=== PATIENT | male | born 1940 | race Caucasian/White ===

== ENCOUNTER 2025-03-31 20:07 | Inpatient (IN) | payer MEDICARE ==
[~2025-03-31] VITALS: Ht 185.4 cm; Wt 91.4 kg
[~2025-03-31 20:07] MED LIST: ALLO100T PO; ASPI81CH49 PO; BRIM0.2S OU; DORZ2SOL5 OU; FURO20TA2 PO; LATA0.0013 OU; LISI10TA22 PO; MELO15TA28 PO; MULT1TAB8 PO; NATU400T PO; OMEG100011 PO; OMEP40CA4 PO; PERC5TAB12 PO; SIMV40TA20 PO; TERA10CA3 PO; [UNRECOGNIZED DRUG - CODE] PO
[2025-03-31] MEDS ORDERED: fentaNYL 100 MCG/2 ML INJECTION IV ONE (20:45)
[2025-03-31] MEDS: ONDANSETRON 4MG 2ML VIAL IV ONE (22:00)
[2025-03-31] MEDS: fentaNYL 100 MCG/2 ML INJECTION IV ONE (22:01)
[2025-03-31] MEDS: ACETAMINOPHEN *IV* 1,000 MG in IV 1 EA IV ONE (22:07)
[2025-03-31 22:14] LABS: HEMATOCRIT 39.5 % (42.0-52.0); HEMOGLOBIN 13.3 g/dl (13.5-17.5); MEAN CORPUSCULAR HGB CONC 33.7 g/dl (32.0-36.5); PLATELET COUNT, AUTOMATED 187 10^3/uL (150-450); RED BLOOD COUNT 4.44 10^6/uL (4.30-6.10); WHITE BLOOD COUNT 8.9 10^3/uL (4.0-10.0)
[2025-03-31 22:45] LABS: CALCIUM LEVEL 9.1 MG/DL (8.3-10.6); CREATININE FOR GFR 1.07 MG/DL (0.70-1.30); GLOMERULAR FILTRATION RATE 69.3 (>35); MAGNESIUM LEVEL 1.7 MG/DL (1.8-2.4); POTASSIUM SERUM 4.3 MMOL/L (3.5-5.1)
[2025-03-31] MEDS ORDERED: ACETAMINOPHEN 325 MG TAB PO PRN (23:50)
[2025-03-31] MEDS ORDERED: MORPHINE 2 MG/ML 1ML VIAL IV PRN (23:50)
[2025-03-31] MEDS ORDERED: ONDANSETRON 4MG 2ML VIAL IV PRN (23:50)
[2025-03-31] MEDS ORDERED: MOM 30ML SUSPENSION UDC PO PRN (23:50)
[2025-03-31] MEDS ORDERED: MAALOX 30 ML SUSP *UDC PO PRN (23:50)
[2025-04-01] VITALS (9 sets, daily range): BP systolic 101–146; BP diastolic 58–79; TEMP 97.2–97.9; O2SAT 92–96
[2025-04-01] MEDS: MAG SULF 1GM/100ML (MAG RUN) 1 GM in IV 1 EA IV ONE (00:17)
[2025-04-01] MEDS: PERCOCET 5MG/325MG TAB PO PRN ×2 (00:23→07:48)
[2025-04-01] MEDS: D5W 1,000 ML IV SCH (01:56)
[2025-04-01 02:01] LABS: INR 1.03; PROTHROMBIN TIME 13.8 SECONDS (12.5-14.5)
[2025-04-01 06:29] LABS: HEMATOCRIT 34.6 % (42.0-52.0); HEMOGLOBIN 11.6 g/dl (13.5-17.5); MEAN CORPUSCULAR HEMOGLOBIN 29.7 pg (27.0-33.0); MEAN CORPUSCULAR HGB CONC 33.5 g/dl (32.0-36.5); MEAN CORPUSCULAR VOLUME 88.7 fl (80.0-96.0); PLATELET COUNT, AUTOMATED 187 10^3/uL (150-450); WHITE BLOOD COUNT 7.5 10^3/uL (4.0-10.0)
[2025-04-01 07:08] LABS: ALBUMIN 3.3 G/DL (3.2-5.2); BILIRUBIN,TOTAL 0.4 MG/DL (0.3-1.2); CALCIUM LEVEL 8.6 MG/DL (8.3-10.6); CREATININE FOR GFR 1.02 MG/DL (0.70-1.30); GLOMERULAR FILTRATION RATE 73.4 (>35); POTASSIUM SERUM 4.1 MMOL/L (3.5-5.1); TOTAL PROTEIN 5.8 G/DL (5.7-8.2)
[2025-04-01] MEDS: DOCUSATE SODIUM 100MG CAPSULE PO SCH (08:00)
[2025-04-01] MEDS: TRANEXAMIC ACID 100 MG/ML 10ML VIAL As Ordered ONE (09:20)
[2025-04-01] MEDS: ceFAZolin SODIUM 2 GM VIAL As Ordered ONE (10:10)
[2025-04-01] MEDS ORDERED: propofoL 200 MG/20 ML VIAL As Ordered ONE (10:26)
[2025-04-01] MEDS ORDERED: SUGAMMADEX SODIUM 500 MG/5 ML VIAL As Ordered ONE (10:26)
[2025-04-01] MEDS ORDERED: ONDANSETRON 4MG 2ML VIAL As Ordered ONE (10:26)
[2025-04-01] MEDS ORDERED: LIDOCAINE 2% 100MG/5ML SDV (FOR ANES.) As Ordered ONE (10:26)
[2025-04-01] MEDS ORDERED: fentaNYL 100 MCG/2 ML INJECTION As Ordered ONE (10:26)
[2025-04-01] MEDS ORDERED: ROCURONIUM BROMIDE 50MG/5ML VIAL As Ordered ONE (10:26)
[2025-04-01] MEDS ORDERED: PHENYLEPHRINE 10MG/ML 1ML VIAL As Ordered ONE (10:32)
[2025-04-01] MEDS ORDERED: ePHEDrine SULFATE 25 MG/5 ML(5MG/ML) SYRINGE As Ordered ONE (10:32)
[2025-04-01] MEDS ORDERED: ACETAMINOPHEN 1000MG/100ML IV BAG As Ordered ONE (10:47)
[2025-04-01] MEDS ORDERED: VANCOMYCIN 1000MG/20ML VIAL As Ordered ONE (11:13)
[2025-04-01] MEDS: BUPivacaine LIPOSOME/PF 266MG 20ML VIAL (13.3MG/ML)(EXPAREL) As Ordered ONE (11:20)
[2025-04-01] MEDS ORDERED: HYDROMORPHONE HCL 0.5 MG/ 0.5 ML SYRINGE IV PRN (11:25)
[2025-04-01] MEDS ORDERED: oxyCODONE 5MG TAB PO PRN (11:25)
[2025-04-01] MEDS ORDERED: METOCLOPRAMIDE INJ 10MG/2ML VIAL IV PRN (11:25)
[2025-04-01] MEDS ORDERED: ONDANSETRON 4MG 2ML VIAL IV PRN (11:25)
[2025-04-01] MEDS ORDERED: fentaNYL 100 MCG/2 ML INJECTION IV PRN (11:25)
[2025-04-01] MEDS ORDERED: KETOROLAC 30 MG/ML 1ML VIAL As Ordered ONE (11:26)
[2025-04-01] MEDS ORDERED: PHENYLephrine 500MCG 5ML (100MCG/ML) SYRINGE As Ordered ONE (11:27)
[2025-04-01] MEDS: ceFAZolin SODIUM 2 GM in DEXTROSE 5% (D5W) ADV/MINI-BAG 50 ML IV SCH (18:20)
[2025-04-01] MEDS: ASPIRIN 81MG ENTERIC TABLET PO SCH (21:50)
[2025-04-01] MEDS ORDERED: MELO7.5T35 PO (22:57)
[2025-04-01] MEDS ORDERED: SIMV20TA22 PO (22:57)
[2025-04-01] MEDS ORDERED: OMEP-173 PO (22:57)
[2025-04-01] MEDS ORDERED: BRIM0.2S13 OU (22:57)
[2025-04-01] MEDS ORDERED: HOME MED LIST COMPLETE! XX SCH (23:00)
[2025-04-02 00:16] VITALS: O2SAT 88
[2025-04-02 00:20] VITALS: O2SAT 91
[2025-04-02 00:21] VITALS: O2SAT 94
[2025-04-02 02:24] VITALS: BP 101/58; TEMP 97.8; O2SAT 95
[2025-04-02 07:13] LABS: HEMATOCRIT 27.5 % (42.0-52.0); INR 1.09; MEAN CORPUSCULAR HEMOGLOBIN 29.7 pg (27.0-33.0); MEAN CORPUSCULAR HGB CONC 32.7 g/dl (32.0-36.5); MEAN CORPUSCULAR VOLUME 90.8 fl (80.0-96.0); PLATELET COUNT, AUTOMATED 161 10^3/uL (150-450); PROTHROMBIN TIME 14.4 SECONDS (12.5-14.5); RED BLOOD COUNT 3.03 10^6/uL (4.30-6.10); WHITE BLOOD COUNT 8.2 10^3/uL (4.0-10.0)
[2025-04-02 07:26] LABS: CALCIUM LEVEL 7.8 MG/DL (8.3-10.6); CREATININE FOR GFR 1.21 MG/DL (0.70-1.30); GLOMERULAR FILTRATION RATE 59.8 (>35); POTASSIUM SERUM 4.4 MMOL/L (3.5-5.1)
[2025-04-02 08:07] VITALS: BP 100/51; TEMP 97.7; O2SAT 91
[2025-04-02] MEDS: METAMUCIL (PSYLLIUM) PACKET PO SCH (09:00)
[2025-04-02] MEDS: MIRALAX *UNIT DOSE* 17GM PACKET PO SCH (09:00)
[2025-04-02] MEDS ORDERED: MIRA33506 PO (10:24)
[2025-04-02] MEDS ORDERED: PERCOCET PO (10:24)
[2025-04-02] MEDS ORDERED: ASPI81CH49 PO (10:24)
[2025-04-02 12:52] VITALS: BP 110/81; TEMP 97.7; O2SAT 94
== END 2025-04-02 14:10 | disposition home or self-care (01) | DRG 981 ==
LOC: M ED 20:07 → EDBD 20:07 → M ED INP 23:47 → M MS5PR 04-01 00:45
PROVIDERS: ADMIT Student in an Organized Health Care Education/Training Program; ATTEND Student in an Organized Health Care Education/Training Program
PROC: 0QSB04Z Reposition Right Lower Femur with Internal Fixation Device, Open Approach (ICD-10-PCS; principal; 2025-04-01 07:57)
DX: D62 Acute posthemorrhagic anemia (principal); S72.121A Displaced fracture of lesser trochanter of right femur, initial encounter for closed fracture; E87.0 Hyperosmolality and hypernatremia; I10 Essential (primary) hypertension; E78.00 Pure hypercholesterolemia, unspecified; K21.9 Gastro-esophageal reflux disease without esophagitis; Z79.82 Long term (current) use of aspirin; Z79.899 Other long term (current) drug therapy; Z90.49 Acquired absence of other specified parts of digestive tract; W29.3XXA Contact with powered garden and outdoor hand tools and machinery, initial encounter; Y92.009 Unspecified place in unspecified non-institutional (private) residence as the place of occurrence of the external cause

== ENCOUNTER → 2025-07-27 | Outpatient (CLI) | payer MEDICARE ==
[~2025-07-27] MED LIST changes: +BRIM0.2S13 OU; +MELO7.5T35 PO; +MIRA33506 PO; +OMEP-173 PO; +PERCOCET PO; +SIMV20TA22 PO
== END ==
LOC: M SOG 07:26
PROVIDERS: ATTEND Orthopaedic Surgery
DX: S72.21XD Displaced subtrochanteric fracture of right femur, subsequent encounter for closed fracture with routine healing (principal)